=== PATIENT | male | born 1930 | race Two or more races ===

== ENCOUNTER 2016-02-26 07:34 | Emergency (ER) | payer OTHER ==
[~2016-02-26] VITALS: Ht 172.7 cm; Wt 54.4 kg
[2016-02-26 09:04] LABS: Basophils # (auto) 0 uL; Basophils % (auto) 0.2 % (0.0-2.0); Eosinophils # (auto) 0.1 uL; Eosinophils % (auto) 1.7 % (0.0-7.0); Hematocrit 39.9 % (41.0-53.0); Hemoglobin 13.1 g/dL (13.5-17.5); Lymphocytes # (auto) 0.9 uL; Lymphocytes % (auto) 14.6 % (10.0-50.0); Mean Corpuscular Hemoglobin 30.9 pg (28.0-32.0); Mean Corpuscular Hgb Conc. 32.9 g/dL (32.0-36.0); Mean Platelet Volume 10.9 fL (7.4-10.4); Monocytes # (auto) 0.6 uL; Monocytes % (auto) 9.3 % (0.0-12.0); Neutrophils # (auto) 4.7 uL; Neutrophils % (auto) 74.2 % (37.0-80.0); Platelet Count (auto) 131 10^3/uL (140-450); Red Cell Distribution Width 13.2 % (11.6-16.0); White Blood Cell 6.4 10^3/uL (4.4-10.8)
[2016-02-26 09:20] LABS: Albumin 3.9 g/dL (3.4-5.0); BUN/Creatinine Ratio 34.1; Bilirubin, Total 1.3 mg/dL (0.2-1.0); Calcium 10.1 mg/dL (8.5-10.1); Potassium 4.3 mmol/L (3.5-5.1); Total Protein 8.5 g/dL (6.4-8.2)
[2016-02-26] MEDS ORDERED: SODIUM CHLORIDE 0.9% 1,000 ML IV ONE (09:33)
[2016-02-26] MEDS ORDERED: LEVETIRACETAM 500 MG TAB PO ONE (09:45)
[2016-02-26] MEDS ORDERED: LORazepam 0.5 MG TAB PO ONE (09:45)
[2016-02-26] MEDS ORDERED: DEXAMETHASONE SOD PHOS 4 MG/1ML SDV INJ IV ONE (09:45)
[2016-02-26 13:31] VITALS: BP 148/91
== END 2016-02-26 13:57 | disposition home or self-care (01) ==
LOC: EDUNIT# 07:34 → ER 07:42
DX: E11.649 Type 2 diabetes mellitus with hypoglycemia without coma (principal); I10 Essential (primary) hypertension; F17.210 Nicotine dependence, cigarettes, uncomplicated; R56.9 Unspecified convulsions; Z86.79 Personal history of other diseases of the circulatory system
CPT/HCPCS: 36415; 70450; 80053; 82962; 83735; 84484; 85025; 93005; 94761; 96361; 96374; 99285; J1100; J7030